=== PATIENT | female | born 1955 | race Caucasian/White ===

== ENCOUNTER 2020-04-14 11:32 | Emergency (ER) | payer OTHER ==
--- NOTE | 2020-04-14 12:12 | EDM.PDOC ---
ED HPI GENERAL MEDICAL PROBLEM - General Chief Complaint: ENT Problem Stated Complaint: FELL/FACIAL INJURY Time Seen by Provider: 04/14/20 11:52 Source of Information: Reports: Patient History Limitations: Reports: No Limitations - History of Present Illness INITIAL COMMENTS - FREE TEXT/NARRATIVE: Patient is a 64-year-old female presenting to the emergency department with complaints of nasal injury. She states that she tripped on a transition on her floor and fell forward. She landed "flat on her face ". Denies loss of consciousness or dizziness. She is not on any blood thinners. She does complain of some pain to her nose as well as bleeding from a laceration on the tip of her nose. She is unsure when her last tetanus vaccination was. Nose Pain Score (Numeric/FACES): 6 - Related Data Allergies Allergy/AdvReac Type Severity Reaction Status Date / Time Penicillins Allergy Severe Hives Verified 04/14/20 11:52 Home Meds: Home Meds Acetaminophen [Tylenol Extra Strength] 2 tab PO ASDIRECTED 04/14/20 [History] Doxycycline [Vibramycin] 100 mg PO BID 10 Days #19 tab 04/14/20 [Rx] Folic Acid 1 tab PO DAILY 04/14/20 [History] Hydroxychloroquine [Plaquenil] 1 tab PO BID 04/14/20 [History] Levothyroxine [Synthroid] 1 tab PO DAILY 04/14/20 [History] Meloxicam [Mobic] 7.5 mg PO DAILY 04/14/20 [History] Methotrexate 1 tab PO ASDIRECTED 04/14/20 [History] Moexipril HCl [Moexipril] 1.5 tab PO DAILY 04/14/20 [History] predniSONE [Prednisone] 1 tab PO ASDIRECTED 04/14/20 [History] Past Medical History Cardiovascular History: Reports: Hypertension Musculoskeletal History: Reports: Arthritis, Osteoarthritis, Other (See Below) Other Musculoskeletal History: rheumatoid arthritis Endocrine/Metabolic History: Reports: Hyperthyroidism - Past Surgical History GI Surgical History: Reports: Appendectomy Female Surgical History: Reports: Hysterectomy Social & Family History - Tobacco Use Smoking Status *Q: Never Smoker Second Hand Smoke Exposure: No - Caffeine Use Caffeine Use: Reports: Soda - Recreational Drug Use Recreational Drug Use: No ED ROS ENT - Review of Systems Review Of Systems: See Below Constitutional: Reports: No Symptoms. Denies: Weakness HEENT: Reports: Nose Pain Respiratory: Reports: No Symptoms Cardiovascular: Reports: No Symptoms Endocrine: Reports: No Symptoms GI/Abdominal: Reports: No Symptoms : Reports: No Symptoms Musculoskeletal: Reports: No Symptoms Skin: Reports: Other (U-shaped laceration to the tip of the nose.) Neurological: Reports: No Symptoms. Denies: Dizziness, Headache Psychiatric: Reports: No Symptoms Hematologic/Lymphatic: Reports: No Symptoms Immunologic: Reports: No Symptoms ED EXAM, ENT - Physical Exam Exam: See Below General Appearance: Alert, WD/WN, No Apparent Distress Nose: Nasal Tenderness, Active Bleeding (to 1.5 cm crescent shaped laceration at the tip of her nose), Dried Blood (to bilateral nares) Mouth/Throat: Normal Inspection, Normal Gums, Normal Lips, Normal Oropharynx, Normal Teeth Head: Atraumatic, Normocephalic Neck: Normal Inspection, Supple, Non-Tender, Full Range of Motion Respiratory/Chest: No Respiratory Distress, Lungs Clear, Normal Breath Sounds, No Accessory Muscle Use, Chest Non-Tender Cardiovascular: Normal Peripheral Pulses, Regular Rate, Rhythm, No Edema, No Gallop, No JVD, No Murmur, No Rub Neurological: Alert, Oriented, CN II-XII Intact, Normal Cognition, Normal Gait, Normal Reflexes, No Motor/Sensory Deficits Psychiatric: Normal Affect, Normal Mood ED ENT PROCEDURES - Laceration/Wound Repair Midline Distal Nose Lac/wound length in cm: 1.5 Appearance: Subcutaneous, Other (crescent shaped) Anesthetic Type: Local Local Anesthesia - Lidocaine (Xylocaine): 1% Plain Local Anesthetic Volume: 2cc Skin Prep: Providone-Iodine (Betadine), Saline Exploration/Debridement/Repair: Wound Explored, In a Bloodless Field, No Foreign Material Found Suture Size: 6-0 # of Sutures: 4 Suture Type: Nylon Sterile Dressing Applied: Nurse Tetanus Status Addressed: Yes Complications: None Course - Vital Signs Last Recorded V/S: Last Vital Signs Temp 97.6 F 04/14/20 11:48 Pulse 90 04/14/20 11:48 Resp 20 04/14/20 11:48 BP 142/85 H 04/14/20 11:48 Pulse Ox 100 04/14/20 11:48 - Orders/Labs/Meds Orders: Active Orders 24 hr Category Date Time Status Vaccines to be Administered [RC] PER UNIT ROUTINE Care 04/14/20 12:32 Active Meds: Medications Discontinued Medications Generic Name Dose Route Start Last Admin Trade Name Chriss PRN Reason Stop Dose Admin Diphtheria/Tetanus/Acell Pertussis 0.5 ml 04/14/20 12:31 04/14/20 12:59 Adacel IM 04/14/20 12:32 0.5 ml .ONCE ONE Administration Lidocaine HCl 10 ml 04/14/20 12:31 04/14/20 12:59 Xylocaine 1% INJECT 04/14/20 12:32 10 ml ONETIME ONE Administration - Re-Assessments/Exams Free Text/Narrative Re-Assessment/Exam: Patient is a 64-year-old female presenting to the emergency department with complaints of nose pain and a laceration to the tip of her nose after falling and landing on her face. States that she tripped over the transition in her floor. She denies loss of consciousness, dizziness, or headache at this time. She is unsure when her last tetanus vaccination is. I have ordered a maxillofacial CT as well as a CT scan of the head. 04/14/20 13:[address] showed a small fracture at the tip of the nasal bone with adjacent soft tissue air. Patient does have a laceration overlying this area which would explain the soft tissue air. CT was reviewed by myself and Dr. Florentino. There is minimal displacement and no misalignment of the nasal bones, therefore this should heal nicely and does not require an ENT referral. Laceration to the tip of nose was closed with sutures. See procedure notes for closure. We will start her on Keflex for infection prophylaxis due to an open fracture. Discharge instructions as documented. Departure - Departure Time of Disposition: 13:14 Disposition: Home, Self-Care 01 Condition: Good Clinical Impression: Laceration of nose Qualifiers: Encounter type: initial encounter Qualified Code(s): S01.21XA - Laceration without foreign body of nose, initial encounter Nasal bone fx-open Qualifiers: Encounter type: initial encounter Qualified Code(s): S02.2XXB - Fracture of nasal bones, initial encounter for open fracture - Discharge Information *PRESCRIPTION DRUG MONITORING PROGRAM REVIEWED*: No *COPY OF PRESCRIPTION DRUG MONITORING REPORT IN PATIENT ADRIEL: No Prescriptions: Doxycycline [Vibramycin] 100 mg PO BID 10 Days #19 tab Instructions: Nasal Fracture, [id number], Laceration Care, Adult Referrals: Luis Enrique Sánchez MD [Primary Care Provider] - Forms: ED Department Discharge Additional Instructions: You were seen in the emergency department today for a nasal injury after falling and hitting her nose on the floor. CT scan of your head and facial bones was completed and shows that you have a small fracture at the tip of your nasal bone. This is well aligned and should heal nicely. You also sustained a la ceration to the tip of your nose. The wound was cleansed and closed with 4 sutures. These should stay intact for 3-5 days. After that time they may be removed in the clinic by a nurse. Keep the wound clean and dry. Wash with normal soap and water twice daily. Do not submerge the wound in water. You have been started on doxycycline which is an antibiotic to prevent infection as this is considered an open fracture due to laceration and underlying nasal fracture. Recommend that you call your primary care provider and schedule a visit for or Tuesday of this week to have the sutures removed. Return to the ER as needed. Sepsis Event Note (ED) - Evaluation Sepsis Screening Result: No Definite Risk - Focused Exam Vital Signs: Vital Signs Temp Pulse Resp BP Pulse Ox 04/14/20 11:48 97.6 F 90 20 142/85 H 100 - My Orders Last 24 Hours: My Active Orders 04/14/20 12:32 Vaccines to be Administered [RC] PER UNIT ROUTINE - Assessment/Plan Last 24 Hours: My Active Orders 04/14/20 12:32 Vaccines to be Administered [RC] PER UNIT ROUTINE
[2020-04-14] MEDS ORDERED: Lidocaine 1% 10 ML MDV INJECT ONE (12:31)
[2020-04-14] MEDS ORDERED: Diphtheria,Pertussis(Acell),Tetanus Vaccine 0.5 ML Syringe IM ONE (12:31)
--- NOTE | 2020-04-14 12:38 | CT ---
Head CT Technique: Multiple axial sections through the brain were obtained. Intravenous contrast was not utilized. Comparison: No prior intracranial imaging is available. Findings: Ventricles along with basal cisterns and sulci over the convexities are within normal limits for the patient's age. No abnormal parenchymal densities are seen. No evidence of intracranial hemorrhage. No midline shift or mass-effect is seen. Bone window settings were reviewed. No acute calvarial finding is seen. Visualized paranasal sinuses and mastoid sinuses show nothing acute. Impression: 1. Nothing acute is appreciated on noncontrast head CT exam. Diagnostic code #1 This report was dictated in MDT
--- NOTE | 2020-04-14 12:40 | CT ---
CT facial bones Technique: Multiple axial sections through the facial bones were obtained. Reconstructed coronal and sagittal images were reviewed. Findings: Fracture is noted within the tip of the nasal bone. Small amount of soft tissue air seen within the adjacent soft tissues. No additional facial bone fracture is appreciated. Minimal nodular mucosal thickening within the right maxillary sinus. No acute paranasal sinus findings are seen. Impression: 1. Fracture within the tip of the nasal bone. This adjacent soft tissue air. 2. Minimal mucosal thickening within the right maxillary sinus. 3. No additional abnormality is seen on facial bone studies. Diagnostic code #3 This report was dictated in MDT
[2020-04-14] MEDS ORDERED: Doxycycline 100 MG Cap PO ONE (13:16)
== END 2020-04-14 13:50 | disposition home or self-care (01) ==
LOC: JD.ED 11:32
DX: S02.2XXB Fracture of nasal bones, initial encounter for open fracture (principal); I10 Essential (primary) hypertension; E21.3 Hyperparathyroidism, unspecified; Z23 Encounter for immunization; Z90.49 Acquired absence of other specified parts of digestive tract; Z90.710 Acquired absence of both cervix and uterus; Z88.0 Allergy status to penicillin; Z79.899 Other long term (current) drug therapy; W01.0XXA Fall on same level from slipping, tripping and stumbling without subsequent striking against object, initial encounter
CPT/HCPCS: 12011; 70450; 70486; 90471; 90715; 99283; A9270; J2001